=== PATIENT | male | born 1965 | race Caucasian/White ===

== ENCOUNTER 2016-12-30 16:56 | Emergency (ER) | payer MEDICAID ==
[~2016-12-30 16:56] MED LIST: LANTUS SOLOS100 U/M1 SQ; TYLENOL WITH CO1 TA2 PO; ZESTRIL5 MG PO
[2016-12-30] MEDS ORDERED: LANTUS SOLOS100 U/M1 (17:02)
[2016-12-30] MEDS ORDERED: HUMALOG100 UNIT/1 (17:02)
[2016-12-30 18:21] LABS: BASOPHIL % 0.4 % (0-2); PLATELET COUNT 183 x10^3mcL (130-400); RED CELL DISTRIBUTION WIDTH 12.4 % (11.5-14.5)
[2016-12-30 18:44] LABS: ALBUMIN 3.4 g/dL (3.4-5.0); BILIRUBIN TOTAL 0.77 mg/dL (0.20-1.00); CALCIUM 8.3 mg/dL (8.5-10.1); CARBON DIOXIDE 26.5 mmol/L (21-32); CREATININE SERUM 1.5 mg/dL (0.7-1.3); POTASSIUM SERUM 4.7 mmol/L (3.5-5.1); TOTAL PROTEIN, SERUM 6.5 g/dL (6.4-8.2)
[2016-12-30 20:26] LABS: UA SPECIFIC GRAVITY <=1.005 (1.005-1.035); microscopic required? YES; urine erythrocyte TRACE (NEGATIVE)
[2016-12-30 20:29] VITALS: BP 112/73
[2016-12-30 20:35] LABS: AMPHETAMINE QUAL UR NONE DETECTED (NEG <=1000)
[2016-12-30 21:11] LABS: MAGNESIUM 2.2 mg/dL (1.8-2.4); PHOSPHOROUS 3.8 mg/dL (2.5-4.9)
[2016-12-30 21:13] LABS: CHOLESTEROL/HDL RATIO 2.5
[2016-12-30 21:29] LABS: T3 TOTAL 0.61 ng/mL
[2016-12-30 22:18] LABS: FREE T4 0.88 ng/dL (0.76-1.46); FREE THYROXINE INDEX 1.9 ug/dL (1.4-4.5); T4(THYROXINE) 5.1 ug/dL (4.7-13.3)
== END 2016-12-30 20:29 | disposition home or self-care (01) ==
LOC: ED 16:56 → DU 19:27 → ED 20:29
PROVIDERS: Emergency Medicine; Family Medicine
DX: E10.65 Type 1 diabetes mellitus with hyperglycemia (principal); I10 Essential (primary) hypertension; Z79.4 Long term (current) use of insulin; Z88.5 Allergy status to narcotic agent
CPT/HCPCS: 82962; 83880; 84439; J7030

== ENCOUNTER 2017-05-05 19:24 | Inpatient (IN) | payer MEDICAID ==
[~2017-05-05] VITALS: Ht 182.9 cm; Wt 72.1 kg
[~2017-05-05 19:24] MED LIST changes: +HUMALOG100 UNIT/1; +LANTUS SOLOS100 U/M1
[2017-05-05 20:18] LABS: PLATELET COUNT 195 x10^3mcL (130-400); RED CELL DISTRIBUTION WIDTH 13.5 % (11.5-14.5)
[2017-05-05 20:33] LABS: ALKALINE PHOSPHATASE 151 U/L (46-116); ALT/SGPT 38 U/L (16-63); AST/SGOT 22 U/L (15-37); BILIRUBIN TOTAL 0.92 mg/dL (0.20-1.00); CALCIUM 9.1 mg/dL (8.5-10.1); CARBON DIOXIDE 11.6 mmol/L (21-32); CHLORIDE SERUM 92 mmol/L (98-107); CREATININE SERUM 2.3 mg/dL (0.7-1.3); GFR1 32 mL/min; SODIUM SERUM 133 mmol/L (136-145); TOTAL PROTEIN, SERUM 7.4 g/dL (6.4-8.2)
[2017-05-05 20:38] LABS: CK-MB 1.4 ng/mL (0-3.6)
[2017-05-05 20:41] LABS: T3 TOTAL 0.6 ng/mL
[2017-05-05 20:44] LABS: BAND NEUTROPHIL 5 % (0-10); BASOPHIL 0 % (0-2); MONOCYTE 4 % (0-7); SEGMENTED NEUTROPHILS 80 % (37-75)
[2017-05-05 20:46] LABS: rbc morphology (normal/abnorm) NORMAL (NORMAL)
[2017-05-05] MEDS ORDERED: ASPIR 8181 MG (20:50)
[2017-05-05 20:51] LABS: C REACTIVE PROTEIN < 0.2 mg/dL (<=0.9)
[2017-05-05 20:53] LABS: GLUCOSE SERUM 788 mg/dL (74-106)
[2017-05-05 20:56] LABS: FREE T4 1.15 ng/dL (0.76-1.46); FREE THYROXINE INDEX 2.3 ug/dL (1.4-4.5); T4(THYROXINE) 6.1 ug/dL (4.7-13.3)
[2017-05-05 21:17] LABS: ERYTHROCYTE SED RATE 7 mm/hr (0-15)
[2017-05-05 21:49] LABS: MAGNESIUM 2.5 mg/dL (1.8-2.4); PHOSPHOROUS 8.6 mg/dL (2.5-4.9)
[2017-05-05 21:50] LABS: CHOLESTEROL/HDL RATIO 3.2
[2017-05-05 22:10] VITALS: BP 139/71
[2017-05-05 23:15] VITALS: BP 96/57
[2017-05-05 23:54] LABS: microscopic required? NO
[2017-05-06] VITALS (14 sets, daily range): BP systolic 95–133; BP diastolic 59–77
[2017-05-06 00:09] LABS: UA SPECIFIC GRAVITY 1.015 (1.005-1.035); urine erythrocyte NEGATIVE (NEGATIVE)
[2017-05-06 00:29] LABS: AMPHETAMINE QUAL UR NONE DETECTED (NEG <=1000)
[2017-05-06 01:01] LABS: CALCIUM 8.2 mg/dL (8.5-10.1); CARBON DIOXIDE 15.1 mmol/L (21-32); CREATININE SERUM 2.1 mg/dL (0.7-1.3); POTASSIUM SERUM 4.9 mmol/L (3.5-5.1)
[2017-05-06 05:01] LABS: BASOPHIL % 0.3 % (0-2); PLATELET COUNT 225 x10^3mcL (130-400); RED CELL DISTRIBUTION WIDTH 12.8 % (11.5-14.5)
[2017-05-06 05:19] LABS: CALCIUM 7.8 mg/dL (8.5-10.1); CARBON DIOXIDE 20.1 mmol/L (21-32); MAGNESIUM 2.4 mg/dL (1.8-2.4); PHOSPHOROUS 2.1 mg/dL (2.5-4.9); POTASSIUM SERUM 4.5 mmol/L (3.5-5.1)
[2017-05-06 09:23] LABS: CARBON DIOXIDE 22.9 mmol/L (21-32); CREATININE SERUM 1.9 mg/dL (0.7-1.3); POTASSIUM SERUM 4.3 mmol/L (3.5-5.1)
[2017-05-06 12:19] LABS: CARBON DIOXIDE 22.6 mmol/L (21-32); CREATININE SERUM 1.7 mg/dL (0.7-1.3); POTASSIUM SERUM 4.1 mmol/L (3.5-5.1)
[2017-05-07 05:31] VITALS: BP 126/69
[2017-05-07 10:19] VITALS: BP 121/79
[2017-05-07 11:04] LABS: BASOPHIL % 0.2 % (0-2); PLATELET COUNT 168 x10^3mcL (130-400); RED CELL DISTRIBUTION WIDTH 13.1 % (11.5-14.5)
[2017-05-07 11:05] VITALS: Ht 182.9 cm; Wt 72.1 kg
[2017-05-07 11:21] LABS: CALCIUM 8.2 mg/dL (8.5-10.1); CARBON DIOXIDE 26.8 mmol/L (21-32); CHLORIDE SERUM 110 mmol/L (98-107); CREATININE SERUM 1.3 mg/dL (0.7-1.3); GFR1 > 60 mL/min; GLUCOSE SERUM 117 mg/dL (74-106); MAGNESIUM 2.3 mg/dL (1.8-2.4); PHOSPHOROUS 2.7 mg/dL (2.5-4.9); POTASSIUM SERUM 4.1 mmol/L (3.5-5.1); SODIUM SERUM 143 mmol/L (136-145)
[2017-05-07 12:57] VITALS: BP 125/78
[2017-05-07 17:16] VITALS: BP 121/76
[2017-05-07 20:49] VITALS: BP 139/79
[2017-05-08 06:15] VITALS: BP 128/82
[2017-05-08 07:09] LABS: BASOPHIL % 0.4 % (0-2); RED CELL DISTRIBUTION WIDTH 13.1 % (11.5-14.5)
[2017-05-08 07:15] LABS: CARBON DIOXIDE 26.5 mmol/L (21-32); CREATININE SERUM 1.4 mg/dL (0.7-1.3); POTASSIUM SERUM 4.4 mmol/L (3.5-5.1)
[2017-05-08 07:22] LABS: PLATELET COUNT 128 x10^3mcL (130-400)
[2017-05-08 09:16] VITALS: BP 106/76
[2017-05-08 17:02] VITALS: BP 114/76
[2017-05-08 21:07] VITALS: BP 137/88
[2017-05-09 05:18] VITALS: BP 140/87
[2017-05-09 09:07] VITALS: BP 134/87
[2017-05-09 14:46] LABS: CALCIUM 8.7 mg/dL (8.5-10.1); CARBON DIOXIDE 31.1 mmol/L (21-32); CHLORIDE SERUM 106 mmol/L (98-107); CREATININE SERUM 1.1 mg/dL (0.7-1.3); GFR1 > 60 mL/min; GLUCOSE SERUM 297 mg/dL (74-106); POTASSIUM SERUM 4.2 mmol/L (3.5-5.1); SODIUM SERUM 144 mmol/L (136-145)
[2017-05-09 14:52] LABS: BASOPHIL % 0.3 % (0-2); PLATELET COUNT 133 x10^3mcL (130-400); RED CELL DISTRIBUTION WIDTH 12.7 % (11.5-14.5)
[2017-05-09 16:06] VITALS: BP 128/84
[2017-05-09 17:02] VITALS: BP 148/92
[2017-05-09 21:13] VITALS: BP 124/87
[2017-05-10 06:13] LABS: BASOPHIL % 0.5 % (0-2); PLATELET COUNT 141 x10^3mcL (130-400); RED CELL DISTRIBUTION WIDTH 12.7 % (11.5-14.5)
[2017-05-10 06:17] VITALS: BP 137/87
[2017-05-10 06:30] LABS: CALCIUM 8.6 mg/dL (8.5-10.1); CARBON DIOXIDE 31.2 mmol/L (21-32); CHLORIDE SERUM 108 mmol/L (98-107); GFR1 > 60 mL/min; GLUCOSE SERUM 124 mg/dL (74-106); MAGNESIUM 2.1 mg/dL (1.8-2.4); PHOSPHOROUS 4.3 mg/dL (2.5-4.9); POTASSIUM SERUM 3.8 mmol/L (3.5-5.1); SODIUM SERUM 146 mmol/L (136-145)
[2017-05-10 09:02] VITALS: BP 137/87
[2017-05-10 09:24] VITALS: BP 132/78
[2017-05-10] MEDS ORDERED: LIPI20 PO (09:29)
[2017-05-10] MEDS ORDERED: LAC PO (09:33)
[2017-05-10] MEDS ORDERED: ERY250 PO (09:33)
[2017-05-10] MEDS ORDERED: FLE10 PO (09:34)
[2017-05-10] MEDS ORDERED: PROTONIX20 MG PO (09:35)
[2017-05-10] MEDS ORDERED: PYR100 PO (09:36)
== END 2017-05-10 15:32 | disposition home or self-care (01) | DRG 420 ==
LOC: ED 19:24 → MU 21:05 → IC 21:05 → DU 05-06 18:47 → MU 05-07 09:59
PROVIDERS: Family Medicine; Specialist
PROC: 02HV33Z Insertion of Infusion Device into Superior Vena Cava, Percutaneous Approach (ICD-10-PCS; principal; 2017-05-06)
PROC: B548ZZA Ultrasonography of Superior Vena Cava, Guidance (ICD-10-PCS; 2017-05-06)
PROC: 0DB68ZX Excision of Stomach, Via Natural or Artificial Opening Endoscopic, Diagnostic (ICD-10-PCS; 2017-05-09)
DX: E10.10 Type 1 diabetes mellitus with ketoacidosis without coma (principal); N17.0 Acute kidney failure with tubular necrosis; E10.65 Type 1 diabetes mellitus with hyperglycemia; E87.0 Hyperosmolality and hypernatremia; D72.828 Other elevated white blood cell count; E10.42 Type 1 diabetes mellitus with diabetic polyneuropathy; E86.0 Dehydration; E10.51 Type 1 diabetes mellitus with diabetic peripheral angiopathy without gangrene; K29.70 Gastritis, unspecified, without bleeding; E83.51 Hypocalcemia; E83.39 Other disorders of phosphorus metabolism; E83.41 Hypermagnesemia; K21.9 Gastro-esophageal reflux disease without esophagitis; Z79.82 Long term (current) use of aspirin; Z68.22 Body mass index [BMI] 22.0-22.9, adult; Z88.5 Allergy status to narcotic agent
CPT/HCPCS: 36556; 36600; 43235; 82962; 83880; 84439; 87804; 90658; J0696; J1170; J1200; J1610; J1642; J1815; J1885; J1940; J2060; J2250; J2310; J2405; J2543; J2550; J2765; J3010; J3490; J7030; J8597; Q0092; Q9967

== ENCOUNTER 2017-05-10 18:45 | Emergency (ER) | payer MEDICAID ==
[~2017-05-10] VITALS: Ht 185.4 cm; Wt 78.0 kg
[~2017-05-10 18:45] MED LIST changes: +ASPIR 8181 MG; +ERY250 PO; +FLE10 PO; +LAC PO; +LIPI20 PO; +PROTONIX20 MG PO; +PYR100 PO
[2017-05-10 18:51] VITALS: Ht 185.4 cm; Wt 78.0 kg
[2017-05-10 20:17] VITALS: BP 163/89
[2017-05-10 20:28] LABS: CALCIUM 8.4 mg/dL (8.5-10.1); CARBON DIOXIDE 27.2 mmol/L (21-32); CREATININE SERUM 1.6 mg/dL (0.7-1.3); POTASSIUM SERUM 4.6 mmol/L (3.5-5.1)
[2017-05-10 20:36] LABS: GLUCOSE SERUM 609.48 mg/dL (74-106)
== END 2017-05-10 20:17 | disposition home or self-care (01) ==
LOC: ED 18:45
PROVIDERS: Emergency Medicine Emergency Medical Services
DX: T82.838A Hemorrhage due to vascular prosthetic devices, implants and grafts, initial encounter (principal); E11.9 Type 2 diabetes mellitus without complications; N39.0 Urinary tract infection, site not specified; Z88.5 Allergy status to narcotic agent
CPT/HCPCS: 82962; J2765; J7030

== ENCOUNTER 2017-07-07 14:57 | Emergency (ER) | payer MEDICAID ==
[~2017-07-07] VITALS: Ht 188 cm; Wt 78.2 kg
[2017-07-07 15:46] LABS: BASOPHIL % 0.3 % (0-2); PLATELET COUNT 182 x10^3mcL (130-400); RED CELL DISTRIBUTION WIDTH 13.1 % (11.5-14.5)
[2017-07-07 15:50] LABS: CALCIUM 8.6 mg/dL (8.5-10.1); CARBON DIOXIDE 27.6 mmol/L (21-32); CREATININE SERUM 1.4 mg/dL (0.7-1.3); POTASSIUM SERUM 4.7 mmol/L (3.5-5.1)
[2017-07-07 15:55] LABS: ALBUMIN 3.7 g/dL (3.4-5.0); BILIRUBIN TOTAL 0.68 mg/dL (0.20-1.00)
[2017-07-07 17:49] VITALS: BP 121/76
== END 2017-07-07 17:51 | disposition home or self-care (01) ==
LOC: ED 14:57
PROVIDERS: Emergency Medicine
DX: S63.502A Unspecified sprain of left wrist, initial encounter (principal); I10 Essential (primary) hypertension; E10.65 Type 1 diabetes mellitus with hyperglycemia; R50.9 Fever, unspecified; R11.10 Vomiting, unspecified; W18.30XA Fall on same level, unspecified, initial encounter; Y93.89 Activity, other specified; Y99.8 Other external cause status; Y92.89 Other specified places as the place of occurrence of the external cause
CPT/HCPCS: 82962; A4570; J1815; J1885; J2405

== ENCOUNTER 2017-07-12 19:48 | Emergency (ER) | payer OTHER ==
[~2017-07-12] VITALS: Ht 185.4 cm; Wt 76.7 kg
[2017-07-12 19:52] VITALS: Ht 185.4 cm; Wt 76.7 kg
[2017-07-12 20:57] LABS: BASOPHIL % 0.4 % (0-2); PLATELET COUNT 209 x10^3mcL (130-400); RED CELL DISTRIBUTION WIDTH 12.9 % (11.5-14.5)
[2017-07-12 21:13] LABS: CALCIUM 8.3 mg/dL (8.5-10.1); CREATININE SERUM 1.5 mg/dL (0.7-1.3); POTASSIUM SERUM 4.5 mmol/L (3.5-5.1)
[2017-07-12 21:17] LABS: ALBUMIN 3.5 g/dL (3.4-5.0); BILIRUBIN TOTAL 0.56 mg/dL (0.20-1.00); TOTAL PROTEIN, SERUM 6.6 g/dL (6.4-8.2)
[2017-07-12 21:23] LABS: microscopic required? YES; urine erythrocyte TRACE (NEGATIVE)
[2017-07-12 22:13] VITALS: BP 118/74
== END 2017-07-12 22:14 | disposition home or self-care (01) ==
LOC: ED 19:48
PROVIDERS: Emergency Medicine
DX: E11.43 Type 2 diabetes mellitus with diabetic autonomic (poly)neuropathy (principal)
CPT/HCPCS: 82962; 83880; J1815; J2765; J7030

== ENCOUNTER 2017-09-23 12:02 | Emergency (ER) | payer OTHER ==
[~2017-09-23] VITALS: Ht 188 cm; Wt 77.1 kg
[~2017-09-23 12:02] MED LIST changes: +ECOTRIN81 M2 PO; +GABAPENTIN100 M2 PO; +GOOD SENSE OMEP20 MG PO; +HUMALOG KW100 UNIT/1 SQ; +PRINIVIL20 MG PO; +ZESTRIL10 MG PO; -ZESTRIL5 MG PO
[2017-09-23 12:13] VITALS: Ht 188 cm; Wt 77.1 kg
[2017-09-23 13:00] LABS: BASOPHIL % 0.3 % (0-2); PLATELET COUNT 165 x10^3mcL (130-400); RED CELL DISTRIBUTION WIDTH 12.9 % (11.5-14.5)
[2017-09-23 13:11] LABS: CALCIUM 8.2 mg/dL (8.5-10.1); CARBON DIOXIDE 27.6 mmol/L (21-32); CREATININE SERUM 1.4 mg/dL (0.7-1.3); POTASSIUM SERUM 4.2 mmol/L (3.5-5.1)
[2017-09-23 13:17] LABS: BILIRUBIN TOTAL 0.49 mg/dL (0.20-1.00)
[2017-09-23 13:18] LABS: ALBUMIN 3.3 g/dL (3.4-5.0); TOTAL PROTEIN, SERUM 6.1 g/dL (6.4-8.2)
[2017-09-23 15:13] VITALS: BP 124/82
== END 2017-09-23 15:13 | disposition home or self-care (01) ==
LOC: ED 12:02
PROVIDERS: Emergency Medicine
DX: E10.65 Type 1 diabetes mellitus with hyperglycemia (principal); R55 Syncope and collapse; R10.13 Epigastric pain; Z88.5 Allergy status to narcotic agent
CPT/HCPCS: 82962; J1815; J1885

== ENCOUNTER 2018-05-19 17:42 | Emergency (ER) | payer MEDICAID ==
[~2018-05-19] VITALS: Ht 180.3 cm; Wt 73.9 kg
[2018-05-19 17:59] VITALS: Ht 180.3 cm; Wt 73.9 kg
[2018-05-19 18:35] LABS: BASOPHIL % 0.8 % (0-2); PLATELET COUNT 177 x10^3mcL (130-400); RED CELL DISTRIBUTION WIDTH 13.1 % (11.5-14.5)
[2018-05-19 18:50] LABS: ALBUMIN 3.9 g/dL (3.4-5.0); BILIRUBIN TOTAL 0.8 mg/dL (0.20-1.00); CALCIUM 8.4 mg/dL (8.5-10.1); CARBON DIOXIDE 28.7 mmol/L (21-32); CREATININE SERUM 1.4 mg/dL (0.7-1.3); POTASSIUM SERUM 5.1 mmol/L (3.5-5.1); TOTAL PROTEIN, SERUM 7.4 g/dL (6.4-8.2)
[2018-05-19 19:08] LABS: microscopic required? NO
[2018-05-19 19:17] LABS: UA SPECIFIC GRAVITY <=1.005 (1.005-1.035); urine erythrocyte NEGATIVE (NEGATIVE)
[2018-05-19 20:52] LABS: MAGNESIUM 2.1 mg/dL (1.8-2.4); PHOSPHOROUS 3.9 mg/dL (2.5-4.9)
[2018-05-19 20:53] LABS: CHOLESTEROL/HDL RATIO 3.1
[2018-05-19 21:02] LABS: FREE T4 0.91 ng/dL (0.76-1.46); FREE THYROXINE INDEX 2.2 ug/dL (1.4-4.5); T3 TOTAL 0.78 ng/mL; T4(THYROXINE) 6.1 ug/dL (4.7-13.3)
[2018-05-19 22:01] VITALS: BP 135/83
[2018-05-19 22:06] LABS: CALCIUM 8.6 mg/dL (8.5-10.1); CARBON DIOXIDE 29.3 mmol/L (21-32); CHLORIDE SERUM 102 mmol/L (98-107); CREATININE SERUM 1.2 mg/dL (0.7-1.3); GFR1 > 60 mL/min; GLUCOSE SERUM 416 mg/dL (74-106); POTASSIUM SERUM 4.3 mmol/L (3.5-5.1); SODIUM SERUM 137 mmol/L (136-145)
[2018-05-20 19:01] LABS: AMPHETAMINE QUAL UR NONE DETECTED (See below)
== END 2018-05-19 22:01 | disposition left against medical advice (07) ==
LOC: ED 17:42 → DU 20:31
PROVIDERS: Emergency Medicine; Family Medicine
DX: E10.65 Type 1 diabetes mellitus with hyperglycemia (principal); F03.90 Unspecified dementia, unspecified severity, without behavioral disturbance, psychotic disturbance, mood disturbance, and anxiety; Z88.5 Allergy status to narcotic agent
CPT/HCPCS: 82962; 84439; J1815; J7030; Q0092

== ENCOUNTER 2018-08-17 18:02 | Inpatient (IN) | payer MEDICAID ==
[~2018-08-17] VITALS: Ht 185.4 cm; Wt 77.1 kg
[2018-08-17 18:09] VITALS: Ht 185.4 cm; Wt 77.1 kg
--- NOTE | 2018-08-17 18:39 | NUR ---
PT C/O HIGH BLOOD SUGAR AND BILATERAL FOOT PAIN. PT STS HE WAS ATTEMPTING TO HAVE A BM WHEN HE LOST HIS BALANCE AND HIT HIS RT ANKLE ON A TABLE. +SWELLING NOTED TO RT ANKLE. SWELLING ALSO NOTED TO LEFT GREAT TOE AND SKIN TEAR PRESENT. PURPLE DISCOLORATION PRESENT TO LEFT GREAT TOE. NO ACTIVE BLEED PRESENT EITHER. PT REPORTS BLOOD SUGAR READ 600 WELL. PT A/O X4. STS MAIN COMPLAINT IS BILAT FOOT PAIN. ABRASIONS ALSO NOTED TO LEFT ELBOW REGION. DR. CORDOVA AT BEDSIDE FOR MSE. WILL CTM.
[2018-08-17 18:55] LABS: BASOPHIL % 0.3 % (0-2); PLATELET COUNT 265 x10^3mcL (130-400); RED CELL DISTRIBUTION WIDTH 12.6 % (11.5-14.5)
--- NOTE | 2018-08-17 19:05 | NUR ---
REPORT GIVEN TO YOLI COLEMAN TO ASSUME CARE OF PT.
[2018-08-17 19:14] LABS: ALBUMIN 3.7 g/dL (3.4-5.0); BILIRUBIN TOTAL 0.75 mg/dL (0.20-1.00); CALCIUM 8.9 mg/dL (8.5-10.1); CARBON DIOXIDE 29.3 mmol/L (21-32); CREATININE SERUM 1.6 mg/dL (0.7-1.3); T4(THYROXINE) 6.5 ug/dL (4.7-13.3); TOTAL PROTEIN, SERUM 7.8 g/dL (6.4-8.2)
--- NOTE | 2018-08-17 19:50 | NUR ---
SPOKE WITH GILBERTO FROM CASE MANAGEMENT REGARDING PT CONDITION. PER GILBERTO AUTH # [id number]
[2018-08-17 20:19] LABS: microscopic required? NO
[2018-08-17] MEDS ORDERED: HUMALOG KW100 UNIT/1 SQ (20:20)
[2018-08-17 20:28] LABS: UA SPECIFIC GRAVITY <=1.005 (1.005-1.035); urine erythrocyte NEGATIVE (NEGATIVE)
[2018-08-17 20:31] LABS: CHOLESTEROL/HDL RATIO 2.9; PHOSPHOROUS 4.7 mg/dL (2.5-4.9)
[2018-08-17 20:38] LABS: AMPHETAMINE QUAL UR NONE DETECTED (See below)
--- NOTE | 2018-08-17 21:19 | NUR ---
PT REPORT CALLED TO DANITZA KENT TO ASSUME PT CARE.
--- NOTE | 2018-08-17 21:35 | NUR ---
PT TRANSFERRED TO [facility] BY [facility] BY FEMI EMT AND BERNARDO RN. PT ON CM FOR TRANSPORT. PT ACCEPTED FOR BEDSIDE HANDOFF BY DANITZA KENT. PT AOX4, RESP EVEN AND UNLABORED, NO ACUTE DISTRESS NOTED. PT TRANSFERRED TO BED WITHOUT INCIDENT. DANITZA TO ASSUME CARE.
--- NOTE | 2018-08-17 21:37 | NUR ---
RECEIVED PT VIA LensAR FROM E/D, ACCOMPANIED BY RN, TRANSPORTER, PT'S MOTHER AND SISTER. PT REPORTED TO HAVE EPISODES OF CONFUSION/FORGETFULNESS, BUT CURRENTLY A/A/O X 4, CALM, COOPERATIVE; CURRENTLY W/ BLURRED VISION TO OU. AMBULATORY W/ SLOW, SHUFFLING GAIT 2/2 RIGHT TIBIA FX AND L GREAT TOE FX (KEATON SPLINT TO LEFT 1ST AND 2ND DIGIT), FALL RISK PROTOCOL INITIATED 2/2 BLE NEUROPATHY. ON TELE # 25, NSR, HR 69, DENIES CHEST PAIN OR DISCOMFORT AT THIS TIME. PATRICIA RADIAL PULSES PRESENT, PATRICIA PEDAL PULSES WEAK, +2 NON-PITTING EDEMA TO R ANKLE AND L GREAT TOE, SCD IN PLACE. NO ACUTE RESPIRATORY DISTRESS NOTED. LEFT DORSAL FOOT W/ SKIN TEAR/PURPLE DISCOLORATION COVERED W/ ADAPTIC/KERLIX, CDI; ABRASION TO R ELBOW, JUAN J. C/O PAIN: NECK 6/10, LOWER BACK 6/10, BLE 8/10, RUE 5/10, ALL SHARP, INTERMITTENT, EXACERBATED BY MOVEMENT/WALKING, RELIEVED BY REST/PAIN MEDICATIONS. IV SITES TO LFA 20G AND RAC 18G, BOTH CDI. ORIENTED PT AND FAMILY MEMBERS TO ROOM, BED CONTROLS, CALL LIGHT SYSTEM. SIDE RAILS UP X 2, BED IN LOW POSITION. WILL ENDORSE TO YOLI BOSCH.
[2018-08-17 22:56] VITALS: BP 114/79
--- NOTE | 2018-08-17 23:08 | NUR ---
PT C/O BPAIN TO HIS BLE 10/11. TYLENOL 650 MG PO GIVEN.
--- NOTE | 2018-08-18 05:00 | NUR ---
PT SLEPT ON AND OFF. HE REMAINS ALERT AND ORIENTED X4. HE WAS MEDICATED FOR PAIN TO BLE X1 W/ RELIEF. DRESSING TO LT FOOT TOES CDI. IVF NS INFUSING AT 100 CC/HR VIA LTFA. ALL NEEDS ATTENDED TO. PT COOPERATIVE W/ CARE.
[2018-08-18 05:27] VITALS: BP 99/65
[2018-08-18 06:53] LABS: BASOPHIL % 0.3 % (0-2); PLATELET COUNT 206 x10^3mcL (130-400); RED CELL DISTRIBUTION WIDTH 12.9 % (11.5-14.5)
[2018-08-18 07:03] LABS: CALCIUM 8.3 mg/dL (8.5-10.1); CARBON DIOXIDE 26.9 mmol/L (21-32); CHLORIDE SERUM 106 mmol/L (98-107); GFR1 > 60 mL/min; GLUCOSE SERUM 228 mg/dL (74-106); POTASSIUM SERUM 3.8 mmol/L (3.5-5.1); SODIUM SERUM 138 mmol/L (136-145)
--- NOTE | 2018-08-18 07:20 | NUR ---
RECEIVED PT FROM CHEMICAL PRODUCTION MACHINE OPERATOR RN. Carlita/YU. TELE#25. DENIES CHEST PAIN/PRESSURE. PT STATES HE HAS BLURRED VISION TO BOTH EYES WHEN SUGAR IS HIGH. RESPIRATIONS EQUAL AND UNLABORED ON RA. DENIES SOB. PT DENIES ANY PAIN AT THIS TIME. LT GREAT TOE SPLINT IN PLACE WITH ADAPTIC AND KERLIX. R ANKLE SWELLING NOTED. LEGS ELEVATED ON PILLOW. IV TO LFA PATENT AND INFUSING. NO REDNESS OR SWELLING NOTED. WILL CONTINUE TO MONITOR. CALL LIGHT IN REACH. BED IN LOWEST POSITION.
[2018-08-18 08:30] VITALS: BP 109/61
--- NOTE | 2018-08-18 09:15 | NUR ---
PT SITTING UP IN BED. NO ACUTE RESP DISTRESS NOTED ON RA. PT DENIES ANY SOB AT THIS TIME. GIVEN PO MEDS. TOLERATED WELL. PT C/O PAIN 09/11 TO BLE. MEDICATED PER EMAR. IV PATENT AND INFUSING. NO REDNESS OR SWELLING NOTED. PT ASKING TO GO HOME. INFORMED PT WILL BE DOING ROUND AND WILL DISCUSS PLAN WITH HIM. WILL CONTINUE TO MONITOR. CALL LIGHT IN REACH. BED IN LOWEST POSITION.
[2018-08-18 12:23] VITALS: BP 107/68
[2018-08-18 16:14] VITALS: BP 126/80
--- NOTE | 2018-08-18 16:20 | NUR ---
PT SITTING UP IN BED. NO ACUTE RESP DISTRESS NOTED ON RA. PT DENIES ANY PAIN AT THIS TIME. BLOOD SUGAR CHECKED WAS 311. GIVEN 12 UNITS OF REGULAR INSULIN PER SLIDING SCALE. WILL CONTINUE TO MONITOR. CALL LIGHT IN REACH. BED IN LOWEST POSITION.
--- NOTE | 2018-08-18 18:57 | NUR ---
PT SITTING UP IN BED. NO ACUTE RESP DISTRESS NOTED ON RA. PT DENIES ANY PAIN AT THIS TIME. IV PATENT AND INFUSING. NO REDNESS OR SWELLING NOTED. RLE CAST IN PLACE. CIRCULATION WNL. LLE SPLINT IN PLACE. WILL ENDOSE TO PODIATRIC SURGEON RN.
--- NOTE | 2018-08-18 19:59 | NUR ---
RECEIVED PT FROM DAY SHIFT RN. PT AAOX4 DENIES HEADAHCE OR DIZZINESS. TELE 25 SR HR 73, DENIES CHEST PAIN. BREATHING EVEN AND UNLABORED, CTA ON RA WITH NO SOB NOTED. ABD SOFT AND ROUND, ACTIVE BOWEL SOUNDS, DENIES ABD PAIN N/V. RLE CAST INTACT PT ABLE TO MOVE TOES. LLE SPLINT IN PLACE AND INTACT, PT ABLE TO MOVE TOES. IV RAC, SL. IV LFA PATENT INFUSING WELL. CALL BUTTON WITHIN REACH. SAFETY PRECAUTIONS IN PLACE. WILL CONTINUE TO MONITOR.
[2018-08-18 21:16] VITALS: BP 124/77
--- NOTE | 2018-08-19 | NUR ---
PT RESTING, BREATHING EVEN AND UNLABORED WITH NO SIGNS OF DISTRESS NOTED. IV PATENT, INFUSING WELL. SAFETY PRECAUTIONS IN PLACE. WILL CONTINUE TO MONITOR.
--- NOTE | 2018-08-19 02:00 | NUR ---
PT RESTING, BREATHING EVEN AND UNLABORED WITH NO SOB NOTED. IV PATENT, INFUSING WELL. CALL BUTTON WITHIN REACH. SAFETY PRECAUTIONS IN PLACE. WILL CONTINUE TO MONITOR.
--- NOTE | 2018-08-19 06:05 | NUR ---
PT REPORTED HAVING LEG PAIN 8/10 MEDICATED PER EMAR. WILL CONTINUE TO MONITOR.
--- NOTE | 2018-08-19 06:08 | NUR ---
PT SLEPT MOST OF THE NGIHT WITH NO SIGNS OF DISTRESS NOTED. BREATHING EVEN AND UNLABORED ON RA WITH NO SOB NOTED. IV PATENT, INFUSING WELL. NO SIGNS OF INFILTRATION NOTED. PT MEDICATED PER EMAR. CALL BUTTON WITHIN REACH. SAFETY PRECAUTIONS IN PLACE. WILL CONTINUE TO MONITOR AND ENDORSE CARE TO DAY SHIFT RN.
[2018-08-19 06:19] VITALS: BP 127/79
[2018-08-19 06:34] LABS: BASOPHIL % 0.4 % (0-2); PLATELET COUNT 194 x10^3mcL (130-400); RED CELL DISTRIBUTION WIDTH 13.3 % (11.5-14.5)
--- NOTE | 2018-08-19 07:10 | NUR ---
RECEIVED PT FROM PEARL PELLER YOLI. Carlita/YU. TELE#25. RESPIRATIONS AND EQUAL AND UNLABORED ON RA. NO ACUTE RESP DISTRESS NOTED. PT STATES HE FEELS CONGESTED AND HE HAS A PAIN RADIATING TO HIS EYES. PT STATES HE HAS A HISTORY OF ALLERGY. PT STATES HE HAS AN EPISODE OF SPLITING UP FLEM, CLEAR MUCUS WAS NOTED. PT STATES TORADOL HELPED WITH PAIN. RLE CAST IN PLACE, PT ABLE TO MOVE TOES, CIRCULATION WNL. LLE SPLIN IN PLACE. DRESSING CDI. WILL CONTINUE TO MONITOR. CALL LIGHT IN REACH. BED IN LOWEST POSITION.
[2018-08-19 07:19] LABS: CALCIUM 8.4 mg/dL (8.5-10.1); CARBON DIOXIDE 26.8 mmol/L (21-32); CHLORIDE SERUM 106 mmol/L (98-107); CREATININE SERUM 1.1 mg/dL (0.7-1.3); GFR1 > 60 mL/min; GLUCOSE SERUM 155 mg/dL (74-106); PHOSPHOROUS 3.3 mg/dL (2.5-4.9); POTASSIUM SERUM 3.7 mmol/L (3.5-5.1); SODIUM SERUM 140 mmol/L (136-145)
--- NOTE | 2018-08-19 07:31 | NUR ---
PT AWAKE, BREATHING EVEN AND UNLABORED WITH NO SOB NOTED. IV PATENT, INFUSING WELL. SAFETY PRECAUTIONS IN PLACE. ENDORSED CARE TO DAY SHIFT RN, ALL QUESTIONS ADDRESSED.
--- NOTE | 2018-08-19 07:48 | NUR ---
SPOKE WITH FREEMAN HARKINS REGARDING PT C/O CONGESTION. PER FREEMAN HARKINS WILL PUT IN ORDER FOR BERNA.
[2018-08-19 08:03] VITALS: BP 138/95
--- NOTE | 2018-08-19 09:17 | NUR ---
PT SITING UP IN BED. NO ACUTE RESP DISTRESS NOTED. PT C/O CONGESTION, SINUS PRESSURE AND SINGLETON. GIVEN CLARITIN. GIVEN PO MEDS. TOLERATED WELL. PT BELIEVES HE IS ALLERGIC TO TORADOL DUE TO CONGESTION. PT EDUCATED ON S/S OF ALLERGIC REACTION. PT ASKING TO ONLY HAVE TYLENOL FOR PAIN MANAGEMENT. WILL CONTINUE TO MONITOR. CALL LIGHT IN REACH. BED IN LOWEST POSITION.
--- NOTE | 2018-08-19 11:07 | NUR ---
PT SITTING UP IN BED. PT C/O NAUSEA AND ASKED FOR MEDICATION FOR NAUSEA. MEDICATED PER EMAR. PT ASKING TO BE DISCHARGED. EXPLAINED TO PT THAT HE IS STAYING TO GET PHYSICAL THERAPY AND WE ARE AWAITING REDUCING SYSTEM OPERATOR TO SEE PT FROM DRESSING CHANGE TO LLE. PT ANXIOUS AND WANTED TO SIGN OUT AMA. PT ASKING IF HE WERE TO SIGN OUT AMA IF HE CAN BE PROVIDED CRUTCHES. FREEMAN HARKINS EXPLAINED TO PT THIS MORNING IF WE WERE TO SIGN OUT AMA WE WOULD NOT BE ABLE TO PROVIDE THOSE SUPPLIES. REINFORCED TO PT. PT STATES "I WILL AWAIT FOR REDUCING SYSTEM OPERATOR AND IF THEY TAKE TOO LONG I WANNA LEAVE." WILL CONTINUE TO MONITOR.
--- NOTE | 2018-08-19 11:30 | NUR ---
FREEMAN HARKINS MADE AWARE OF PT PO
[2018-08-19 12:35] VITALS: BP 127/79
--- NOTE | 2018-08-19 12:38 | NUR ---
PT IN BED RESTING. NO ACUTE RESP DISTRESS NOTED ON RA. BLOOD SUGAR WAS CHECKED WAS 321. GIVEN 12 UNITS OF REGULAR INSULIN PER SLIDING SCALE. PT DENIES ANY PAIN AT THIS TIME. PT STATES HES DOING OKAY AND WILL WAIT FOR RETAIL BANKING MANAGER TO SEE HIM. WILL CONTINUE TO MONITOR. CALL LIGHT IN REACH. BED IN LOWEST POSITION.
--- NOTE | 2018-08-19 14:23 | NUR ---
DR. AC AT BEDSIDE. PROVIDED DRESSING CHANGES. DR. AC PROVIDED PT WITH CONTACT INFORMATION FOR FOLLOW UP APPOINTMENT.
[2018-08-19 15:46] VITALS: BP 120/84
--- NOTE | 2018-08-19 17:10 | NUR ---
PT IN BED RESTING. PT STATES "YOU ARE RIGHT I SHOULD STAY" BLOOD SUGAR CHECKED WAS 174. GIVEN 3 UNITS OF REGULAR INSULIN PER SLIDING SCALE. GIVEN PO MEDS. TOLERATED WELL. EMPTIED 800 ML OF CLEAR YELLOW URINE FROM URINAL. WILL CONTINUE TO MONITOR. CALL LIGHT IN REACH. BED IN LOWEST POSITION.
--- NOTE | 2018-08-19 18:45 | NUR ---
PT IN BED RESTING. TELE#25. NO ACUTE RESP DISTRESS NOTED ON RA. IV TO LFA PATENT AND INFUSING. NO REDNESS OR SWELLING NOTED. RLE CAST IN PLACE, PT ABLE TO MOVE TOES, CIRCULATION WNL. LLL SPLINT IN PLACE, DRESSING CDI. WILL ENDORSE TO KETTLE FRY COOK OPERATOR RN. CALL LIGHT IN REACH. BED IN LOWEST POSITION.
--- NOTE | 2018-08-19 19:15 | NUR ---
RECIEVED REPORT FROM YOLI SORIANO. NURSING UPDATES. POC DISCUSSED. SEE SHIFT ASSESSMENT.
--- NOTE | 2018-08-19 20:22 | NUR ---
PT NOTED W/ PAIN IN PATRICIA FEET. STATING PAIN 5/10 WITH STARTING TO FEEL BURNING SENSATION IN HIS FEET. ADM PRN *( SEE MAR )* TRAMODOL AND PT REQUESTED TYLENOL. WILL REASSESS.
[2018-08-19 20:25] VITALS: BP 130/83
--- NOTE | 2018-08-19 21:00 | NUR ---
PT W/ STATED 0/10 PAIN POST PAIN MEDICATION ADMIN.
--- NOTE | 2018-08-20 02:05 | NUR ---
PT RESTING COMFORTABLY IN BED. NO ACUTE CHANGES. BED IN LOWEST POSITION CALL FERRARI WITHIN REACH.
--- NOTE | 2018-08-20 04:09 | NUR ---
PT RESTING COMFORTABLY IN BED. NO ACUTE CHANGES. BED IN LOWEST POSITION CALL FERRARI WITHIN REACH.
--- NOTE | 2018-08-20 05:38 | NUR ---
PT W/ BS 61. STATED FEELING SWEATY AND BLURRY VISION. PROVIDED OJ AND TOOK BS. BS NOW 65. INTIATED OJ W/ 2 PACKS SUGAR, MILK, SANDWICH. BS THEN CHECK AND 80. PT STATED SEEING A LOT BETTER AND BEING ABLE TO SEE NOW. WILL ENDORSE AND CONT TO MONITOR.
[2018-08-20 05:50] VITALS: BP 128/80
--- NOTE | 2018-08-20 06:29 | NUR ---
PT C/O N/V, PRN ZOFRAN IVP GIVEN ORDERED. EMESIS BAG PROVIDED, PT VOMITED 400 ML, YELLOW COLORED. RBS-[id number]. NO ACUTE DISTRESS NOTED. PRIMARY NURSE-CHRISTY UPDATED.
--- NOTE | 2018-08-20 06:39 | NUR ---
PT W/ NOTIFIED EMESIS OF 400 ML. VANILLA IN COLOR. PT ADMIN PRN (*SEE MAR*) ZOFRAN. BS CHECK 112. PT STATED PAIN IN THE BACK OF HEAD WILL ADMIN PAIN TORADOL.
--- NOTE | 2018-08-20 07:10 | NUR ---
RECEIVED PT FROM MATERIAL HANDLER FLOORPERSON YOLI. Carlita/YU. TELE#25. RESPIRATIONS EQUAL AND UNLABORED ON RA. DENIES SOB. PT HAS 1 EPISODE OF EMESIS THIS AM. PT DENIES ANY N/V AT THIS TIME. PT C/O 01/11 TO BLE THROBBING. WILL MEDICATE PER EMAR. IV TO LFA PATENT AND INFUSING. NO REDNESS OR SWELLING NOTED. CAST TO RLL CDI, PT ABLE TO WIGGLE TOES. LLE SPLINT IN PLACE, CDI. WILL CONTINUE TO MONITOR. CALL LIGHT IN REACH. BED IN LOWEST POSITION.
--- NOTE | 2018-08-20 07:19 | NUR ---
REPORT GIVEN TO CHRISTIE. NURSING UPDATES. POC DISCUSSED.
[2018-08-20 07:53] VITALS: BP 140/81
--- NOTE | 2018-08-20 08:03 | NUR ---
PT SITTING UP IN BED. NO ACUTE RESP DISTRESS NOTED ON RA. PT C/O PAIN 01/11 TO BLE AND SINGLETON. MEDICATED PER EMAR. PT STATES HE WANTS TO WAIT TO EAT SINCE HE VOMITED THIS AM. WILL CONTINUE TO MONITOR. CALL LIGHT IN REACH. BED IN LOWEST POSITION.
[2018-08-20 08:54] LABS: BASOPHIL % 0.3 % (0-2); PLATELET COUNT 189 x10^3mcL (130-400)
[2018-08-20 09:03] LABS: CALCIUM 8.4 mg/dL (8.5-10.1); CARBON DIOXIDE 29.5 mmol/L (21-32); CHLORIDE SERUM 106 mmol/L (98-107); CREATININE SERUM 1.1 mg/dL (0.7-1.3); GFR1 > 60 mL/min; GLUCOSE SERUM 226 mg/dL (74-106); POTASSIUM SERUM 4.5 mmol/L (3.5-5.1); SODIUM SERUM 140 mmol/L (136-145)
--- NOTE | 2018-08-20 09:18 | NUR ---
FREEMAN HARKINS SPOKE TO PT. PT REFUSING TO STAY. PT WANTS TO SIGN OUT AMA. PT SIGNED AMA FORM. IV TO LFA REMOVED CATHETER INTACT. NO REDNESS OR SWELLING NOTED. PT STATES "I WOULD RATHER GO HOME AND TAKE CARE OF MYSELF. TELE#25 REMOVED AND RETURNED TO STATION USHER BARBARA. PT WHEELDOWN TO LOBBY BY NAYAN.
== END 2018-08-20 09:50 | disposition left against medical advice (07) | DRG 342 ==
LOC: ED 18:02 → DU 20:08
PROVIDERS: Emergency Medicine; ADMIT Internal Medicine
PROC: 0QSRXZZ Reposition Left Toe Phalanx, External Approach (ICD-10-PCS; principal; 2018-08-18)
DX: S92.412A Displaced fracture of proximal phalanx of left great toe, initial encounter for closed fracture (principal); N17.0 Acute kidney failure with tubular necrosis; E10.65 Type 1 diabetes mellitus with hyperglycemia; E10.42 Type 1 diabetes mellitus with diabetic polyneuropathy; L03.116 Cellulitis of left lower limb; E87.1 Hypo-osmolality and hyponatremia; S82.54XA Nondisplaced fracture of medial malleolus of right tibia, initial encounter for closed fracture; I10 Essential (primary) hypertension; K21.9 Gastro-esophageal reflux disease without esophagitis; R74.0 Nonspecific elevation of levels of transaminase and lactic acid dehydrogenase [LDH]; F12.10 Cannabis abuse, uncomplicated; Z79.4 Long term (current) use of insulin; Z68.22 Body mass index [BMI] 22.0-22.9, adult; Z91.11 Patient's noncompliance with dietary regimen; W18.39XA Other fall on same level, initial encounter; Y93.89 Activity, other specified; Y92.018 Other place in single-family (private) house as the place of occurrence of the external cause
CPT/HCPCS: 82962; 83880; 97530-GP; J0690; J1644; J1815; J1885; J2405; J7030; Q0092

== ENCOUNTER 2019-09-08 18:52 | Inpatient (IN) | payer OTHER ==
[~2019-09-08] VITALS: Ht 188 cm; Wt 79.4 kg
[~2019-09-08 18:52] MED LIST changes: +OSELTAMIVIR PHO30 MG PO
[2019-09-08 19:03] VITALS: Ht 188 cm; Wt 79.4 kg
[2019-09-08 19:41] LABS: BASOPHIL % 0.2 % (0-2); PLATELET COUNT 210 x10^3mcL (130-400); RED CELL DISTRIBUTION WIDTH 12.8 % (11.5-14.5)
[2019-09-08 19:52] LABS: CALCIUM 8.6 mg/dL (8.5-10.1); CARBON DIOXIDE 29.7 mmol/L (21-32); CHLORIDE SERUM 105 mmol/L (98-107); CREATININE SERUM 1.2 mg/dL (0.7-1.3); GFR1 > 60 mL/min; GLUCOSE SERUM 69 mg/dL (74-106); SODIUM SERUM 142 mmol/L (136-145)
[2019-09-08 19:58] LABS: ALBUMIN 3.6 g/dL (3.4-5.0); ALKALINE PHOSPHATASE 76 U/L (46-116); ALT/SGPT 19 U/L (16-63); AST/SGOT 10 U/L (15-37); BILIRUBIN TOTAL 0.6 mg/dL (0.20-1.00); LIPASE 72 IU/L (73-393); TOTAL PROTEIN, SERUM 6.6 g/dL (6.4-8.2)
[2019-09-08 20:30] LABS: microscopic required? YES; urine erythrocyte TRACE (NEGATIVE)
[2019-09-08] MEDS ORDERED: HUMALOG KW100 UNIT/1 (21:07)
[2019-09-08] MEDS ORDERED: ASPIR 8181 MG (21:09)
[2019-09-08 21:58] LABS: MAGNESIUM 2.1 mg/dL (1.8-2.4); PHOSPHOROUS 4.4 mg/dL (2.5-4.9)
[2019-09-08 22:03] LABS: CHOLESTEROL/HDL RATIO 2.4
[2019-09-08 22:06] LABS: FREE T4 0.8 ng/dL (0.76-1.46); FREE THYROXINE INDEX 2.1 ug/dL (1.4-4.5); T4(THYROXINE) 5.5 ug/dL (4.7-13.3)
[2019-09-08 22:08] LABS: T3 TOTAL 0.78 ng/mL
[2019-09-08 22:16] LABS: AMPHETAMINE QUAL UR NONE DETECTED (See below)
[2019-09-08 22:35] VITALS: BP 139/88
[2019-09-09 05:37] VITALS: BP 126/77
[2019-09-09 06:19] LABS: BASOPHIL % 0.4 % (0-2); PLATELET COUNT 183 x10^3mcL (130-400); RED CELL DISTRIBUTION WIDTH 13.2 % (11.5-14.5)
[2019-09-09 06:37] LABS: CALCIUM 8.6 mg/dL (8.5-10.1); CHLORIDE SERUM 107 mmol/L (98-107); CREATININE SERUM 1.1 mg/dL (0.7-1.3); GFR1 > 60 mL/min; GLUCOSE SERUM 102 mg/dL (74-106); MAGNESIUM 2.1 mg/dL (1.8-2.4); PHOSPHOROUS 3.3 mg/dL (2.5-4.9); SODIUM SERUM 142 mmol/L (136-145)
[2019-09-09 09:02] VITALS: BP 115/76
[2019-09-09 14:20] VITALS: BP 122/80
[2019-09-09 17:04] VITALS: BP 120/83
[2019-09-09 21:00] VITALS: BP 126/83
[2019-09-10 05:27] VITALS: BP 123/86
[2019-09-10 07:02] LABS: CALCIUM 8.1 mg/dL (8.5-10.1); CARBON DIOXIDE 28.3 mmol/L (21-32); CHLORIDE SERUM 105 mmol/L (98-107); CREATININE SERUM 1.1 mg/dL (0.7-1.3); GFR1 > 60 mL/min; GLUCOSE SERUM 381 mg/dL (74-106); PHOSPHOROUS 3.8 mg/dL (2.5-4.9); POTASSIUM SERUM 4.6 mmol/L (3.5-5.1); SODIUM SERUM 140 mmol/L (136-145)
[2019-09-10 07:36] LABS: BASOPHIL % 0.3 % (0-2); PLATELET COUNT 181 x10^3mcL (130-400); RED CELL DISTRIBUTION WIDTH 13.1 % (11.5-14.5)
[2019-09-10 08:42] VITALS: BP 123/92
[2019-09-10 12:09] VITALS: BP 139/92
[2019-09-10 17:31] VITALS: BP 124/98
== END 2019-09-10 19:05 | disposition home or self-care (01) | DRG 420 ==
LOC: ED 18:52 → DU 21:16
PROVIDERS: Emergency Medicine; ADMIT Family Medicine; ATTEND Family Medicine
DX: E10.649 Type 1 diabetes mellitus with hypoglycemia without coma (principal); G93.41 Metabolic encephalopathy; E10.40 Type 1 diabetes mellitus with diabetic neuropathy, unspecified; G89.29 Other chronic pain; M54.9 Dorsalgia, unspecified; K21.9 Gastro-esophageal reflux disease without esophagitis; Z79.899 Other long term (current) drug therapy
CPT/HCPCS: 82947; 82962; 84439; G0378; J1815; J2405; J7030; J7070; Q0092

== ENCOUNTER 2020-03-04 21:33 | Emergency (ER) | payer OTHER ==
[~2020-03-04] VITALS: Ht 170.2 cm; Wt 77.1 kg
[~2020-03-04 21:33] MED LIST changes: +HUMALOG KW100 UNIT/1
[2020-03-05 00:41] LABS: BASOPHIL % 0.3 % (0-2); PLATELET COUNT 203 x10^3mcL (130-400); RED CELL DISTRIBUTION WIDTH 13.3 % (11.5-14.5)
[2020-03-05 01:00] LABS: CALCIUM 8.8 mg/dL (8.5-10.1); CARBON DIOXIDE 29.1 mmol/L (21-32); CHLORIDE SERUM 103 mmol/L (98-107); CREATININE SERUM 1.6 mg/dL (0.7-1.3); GFR1 48 mL/min; GLUCOSE SERUM 412 mg/dL (74-106); POTASSIUM SERUM 4.4 mmol/L (3.5-5.1); SODIUM SERUM 136 mmol/L (136-145)
[2020-03-05 01:13] LABS: ALBUMIN 3.7 g/dL (3.4-5.0); ALKALINE PHOSPHATASE 92 U/L (46-116); ALT/SGPT 28 U/L (16-63); AST/SGOT 23 U/L (15-37); BILIRUBIN TOTAL 0.7 mg/dL (0.20-1.00); TOTAL PROTEIN, SERUM 6.8 g/dL (6.4-8.2)
[2020-03-05 04:27] LABS: AMPHETAMINE QUAL UR NONE DETECTED (See below)
[2020-03-05 08:05] VITALS: BP 152/113
== END 2020-03-05 08:05 | disposition home or self-care (01) ==
LOC: ED 21:33
PROVIDERS: Emergency Medicine
DX: G89.29 Other chronic pain (principal); M54.9 Dorsalgia, unspecified; K21.9 Gastro-esophageal reflux disease without esophagitis; Z88.5 Allergy status to narcotic agent; Z20.828 Contact with and (suspected) exposure to other viral communicable diseases
CPT/HCPCS: 82962; G0480; U0003